=== PATIENT | female | born 1955 | race Caucasian/White ===

== ENCOUNTER 2021-09-09 17:34 | Inpatient (IN) ==
[2021-09-09 19:59] LABS: Basophils % 0.3 %; Hematocrit 37.8 % (35.3-44.9); Hemoglobin 12.3 g/dL (11.5-15.4); Immature Granulocytes % 0.3 % (0-4); Lymphocytes # 1.3 K/mcL (0.6-4.6); Lymphocytes % 38.7 %; Mean Corpuscular HGB Conc 32.5 g/dL (31.6-35.5); Mean Corpuscular Hemoglobin 27.5 pg (28.0-33.3); Mean Corpuscular Volume 84.6 fL (83.0-100.0); Mean Platelet Volume 9.7 fL (9.4-12.4); Monocytes # 0.2 K/mcL (0.0-1.3); Monocytes % 5.5 %; Neutrophils # 1.9 K/mcL (1.6-8.9); Platelet Count 167 K/mcL (140-400); Red Blood Count 4.47 M/mcL (3.82-4.97); Red Cell Distribution Width 15.5 % (11.5-14.5); Segmented Neutrophils % 55.2 %; White Blood Count 3.5 K/mcL (4.3-11.1)
[2021-09-09] MEDS ORDERED: Famotidine 20 MG/2 ML VIAL IVP ONE (20:03)
[2021-09-09 20:18] LABS: BUN/Creatinine Ratio 20 (6-26); Blood Urea Nitrogen 20 mg/dL (8-23); Calcium 8.6 mg/dL (8.6-10.3); Carbon Dioxide 29 mEq/L (23-29); Chloride 101 mEq/L (98-107); Glucose 104 mg/dL (70-105); Osmolality,Calculated 287 (280-300); Potassium 3.6 mEq/L (3.5-5.1); Sodium 137 mEq/L (136-145); eGFR For African Americans > 60 (> 60); eGFR For Non-African Americans 56 (> 60)
[2021-09-09 20:19] LABS: Troponin I < 0.03 ng/mL (< 0.04)
[2021-09-10] MEDS ORDERED: Acetaminophen 325 MG TABLET PO PRN (00:29)
[2021-09-10] MEDS ORDERED: Ondansetron 4 MG/2 ML VIAL IVP PRN (00:29)
[2021-09-10] MEDS ORDERED: Naloxone 0.4 MG/ML INJ IVP PRN (00:29)
[2021-09-10] MEDS ORDERED: Ipratropium/Albuterol Neb 3 ML IH PRN (00:32)
[2021-09-10] MEDS ORDERED: Remdesivir 200 MG in 0.9 % Sodium Chloride 100 ML IVPB ONE (02:00)
[2021-09-10 02:44] LABS: Basophils % 0.2 %; Hematocrit 38.1 % (35.3-44.9); Hemoglobin 12.2 g/dL (11.5-15.4); Immature Granulocytes % 0.5 % (0-4); Lymphocytes # 0.8 K/mcL (0.6-4.6); Lymphocytes % 20.5 %; Mean Corpuscular Hemoglobin 27.1 pg (28.0-33.3); Mean Corpuscular Volume 84.5 fL (83.0-100.0); Mean Platelet Volume 9.6 fL (9.4-12.4); Monocytes # 0.1 K/mcL (0.0-1.3); Monocytes % 3.2 %; Neutrophils # 3.1 K/mcL (1.6-8.9); Platelet Count 172 K/mcL (140-400); Red Blood Count 4.51 M/mcL (3.82-4.97); Red Cell Distribution Width 15.4 % (11.5-14.5); Segmented Neutrophils % 75.6 %
[2021-09-10 02:51] LABS: INR 1.1; Prothrombin Time 12.7 Seconds (9.4-12.1)
[2021-09-10] MEDS: Mirtazapine 15 MG TABLET PO SCH ×2 (03:18→20:03)
[2021-09-10 03:55] LABS: Alanine Aminotransferase 31 Units/L (7-52); Albumin 3.6 g/dL (3.5-5.7); Albumin/Globulin Ratio 1.3 (1.1-2.2); Alkaline Phosphatase 50 Units/L (34-104); Aspartate Amino Transferase 41 Units/L (13-39); BUN/Creatinine Ratio 21 (6-26); Bilirubin,Direct 0.1 mg/dL (0.0-0.2); Bilirubin,Indirect 0.4 mg/dL (0.0-1.0); Bilirubin,Total 0.5 mg/dL (0.3-1.0); Blood Urea Nitrogen 18 mg/dL (8-23); C-Reactive Protein 37 mg/L (Less than 10); Calcium 8.3 mg/dL (8.6-10.3); Carbon Dioxide 23 mEq/L (23-29); Chloride 104 mEq/L (98-107); Globulin 2.7 g/dL (2.4-3.5); Glucose 134 mg/dL (70-105); Lactate Dehydrogenase 321 Units/L (140-271); Magnesium 1.8 mg/dL (1.6-2.6); Osmolality,Calculated 288 (280-300); Potassium 3.4 mEq/L (3.5-5.1); Sodium 137 mEq/L (136-145); Thyroid Stimulating Hormone 1.994 mcIU/mL (0.340-5.600); Total Protein 6.3 g/dL (6.4-8.9); eGFR For African Americans > 60 (> 60); eGFR For Non-African Americans > 60 (> 60)
[2021-09-10 04:34] LABS: Ferritin 279 ng/mL (10-120)
[2021-09-10] MEDS: Aspirin Enteric Coated 81 MG Tablet PO SCH (08:23)
[2021-09-10] MEDS: Gabapentin 100 MG CAPSULE PO SCH ×3 (08:23→20:03)
[2021-09-10] MEDS: Metoprolol XL (24 HR) Succ 25 MG TAB.ER.24H PO SCH (08:23)
[2021-09-10] MEDS: hydroCHLOROthiazide 25 MG TABLET PO SCH (08:23)
[2021-09-10] MEDS: Losartan/HCTZ 50-12.5 TABLET PO SCH (08:23)
[2021-09-10] MEDS: *HR* Enoxaparin 40 MG/0.4 ML SYRINGE SQ SCH (08:24)
[2021-09-10] MEDS: Vilazodone Hcl [Viibryd] 40 MG PO SCH (08:26)
[2021-09-10] MEDS: *HR* OxyCODONE/APAP 7.5/325 TABLET PO PRN (08:34)
[2021-09-10] MEDS ORDERED: Azithromycin 500 MG in 0.9 % Sodium Chloride 250 ML IVPB SCH (09:00)
[2021-09-10] MEDS: Ipratropium 1 PUFF INHALER IH SCH ×4 (11:19→23:19)
[2021-09-10 13:24] LABS: Bilirubin,Urine Negative (Negative); Blood,Urine Negative (Negative); Clarity,Urine Clear (Clear); Color,Urine Yellow (Yellow); Glucose,Urine (UA) Normal (Normal); Ketones,Urine Negative (Negative); Leukocyte Esterase,Urine Negative (Negative); Mucus,Urine Few per lpf (None-Few); Nitrite,Urine Negative (Negative); Protein,Urine 70 mg/dL (Neg-Trace); RBC,Urine 0-3 per hpf (0-3); Specific Gravity,Urine 1.028 (1.010-1.025); Squamous Epithelial Cell,Urine Few per hpf (None-Few); Urobilinogen,Urine Normal (Normal)
[2021-09-10] MEDS ORDERED: Fluticasone Propionate Nasal 50 MCG/SPRAY BOTTLE NS PRN (17:49)
[2021-09-10] MEDS: Gabapentin 300 MG CAPSULE PO SCH (20:03)
[2021-09-10] MEDS: Benzonatate 100 MG CAPSULE PO SCH (20:04)
[2021-09-11] MEDS: Remdesivir 100 MG in 0.9 % Sodium Chloride 100 ML IVPB SCH (00:34)
[2021-09-11] MEDS: Ipratropium 1 PUFF INHALER IH SCH ×5 (03:48→20:24)
[2021-09-11 06:22] LABS: Basophils % 0.2 %; Hematocrit 38.4 % (35.3-44.9); Hemoglobin 12.3 g/dL (11.5-15.4); Immature Granulocytes % 0.2 % (0-4); Lymphocytes # 1.6 K/mcL (0.6-4.6); Lymphocytes % 32.1 %; Mean Corpuscular Hemoglobin 27.3 pg (28.0-33.3); Mean Corpuscular Volume 85.3 fL (83.0-100.0); Mean Platelet Volume 9.4 fL (9.4-12.4); Monocytes # 0.2 K/mcL (0.0-1.3); Monocytes % 4.5 %; Neutrophils # 3.2 K/mcL (1.6-8.9); Platelet Count 195 K/mcL (140-400); Red Cell Distribution Width 15.2 % (11.5-14.5); White Blood Count 5.1 K/mcL (4.3-11.1)
[2021-09-11] MEDS: Aspirin Enteric Coated 81 MG Tablet PO SCH (08:05)
[2021-09-11] MEDS: Gabapentin 300 MG CAPSULE PO SCH ×2 (08:05→20:19)
[2021-09-11] MEDS: *HR* OxyCODONE/APAP 7.5/325 TABLET PO PRN ×2 (08:05→20:19)
[2021-09-11] MEDS: Gabapentin 100 MG CAPSULE PO SCH (08:05)
[2021-09-11] MEDS: Benzonatate 100 MG CAPSULE PO SCH ×3 (08:06→20:18)
[2021-09-11] MEDS: Losartan/HCTZ 50-12.5 TABLET PO SCH (08:06)
[2021-09-11] MEDS: Metoprolol XL (24 HR) Succ 25 MG TAB.ER.24H PO SCH (08:06)
[2021-09-11] MEDS: hydroCHLOROthiazide 25 MG TABLET PO SCH (08:06)
[2021-09-11] MEDS: Vilazodone Hcl [Viibryd] 40 MG PO SCH (08:06)
[2021-09-11] MEDS: *HR* Enoxaparin 40 MG/0.4 ML SYRINGE SQ SCH (08:07)
[2021-09-11 09:03] LABS: Alanine Aminotransferase 29 Units/L (7-52); Albumin 3.4 g/dL (3.5-5.7); Albumin/Globulin Ratio 1.3 (1.1-2.2); Alkaline Phosphatase 46 Units/L (34-104); Aspartate Amino Transferase 43 Units/L (13-39); BUN/Creatinine Ratio 24 (6-26); Bilirubin,Total 0.5 mg/dL (0.3-1.0); Blood Urea Nitrogen 21 mg/dL (8-23); C-Reactive Protein 31 mg/L (Less than 10); Calcium 8.2 mg/dL (8.6-10.3); Carbon Dioxide 23 mEq/L (23-29); Chloride 103 mEq/L (98-107); Ferritin 287 ng/mL (10-120); Globulin 2.6 g/dL (2.4-3.5); Glucose 95 mg/dL (70-105); Lactate Dehydrogenase 416 Units/L (140-271); Osmolality,Calculated 285 (280-300); Potassium 3.3 mEq/L (3.5-5.1); Sodium 136 mEq/L (136-145); eGFR For African Americans > 60 (> 60); eGFR For Non-African Americans > 60 (> 60)
[2021-09-11] MEDS: Mirtazapine 15 MG TABLET PO SCH (20:19)
[2021-09-12] MEDS: Ipratropium 1 PUFF INHALER IH SCH ×6 (00:11→21:01)
[2021-09-12] MEDS: Remdesivir 100 MG in 0.9 % Sodium Chloride 100 ML IVPB SCH (01:38)
[2021-09-12 06:29] LABS: Basophils % 0.2 %; Hematocrit 37.3 % (35.3-44.9); Hemoglobin 12.1 g/dL (11.5-15.4); Immature Granulocytes % 0.4 % (0-4); Lymphocytes # 1.5 K/mcL (0.6-4.6); Lymphocytes % 25.9 %; Mean Corpuscular HGB Conc 32.4 g/dL (31.6-35.5); Mean Corpuscular Hemoglobin 27.1 pg (28.0-33.3); Mean Corpuscular Volume 83.6 fL (83.0-100.0); Monocytes # 0.3 K/mcL (0.0-1.3); Monocytes % 4.6 %; Neutrophils # 3.9 K/mcL (1.6-8.9); Platelet Count 203 K/mcL (140-400); Red Blood Count 4.46 M/mcL (3.82-4.97); Red Cell Distribution Width 15.4 % (11.5-14.5); Segmented Neutrophils % 68.9 %; White Blood Count 5.6 K/mcL (4.3-11.1)
[2021-09-12 06:47] LABS: Alanine Aminotransferase 23 Units/L (7-52); Albumin 3.4 g/dL (3.5-5.7); Albumin/Globulin Ratio 1.3 (1.1-2.2); Alkaline Phosphatase 46 Units/L (34-104); Aspartate Amino Transferase 32 Units/L (13-39); BUN/Creatinine Ratio 25 (6-26); Bilirubin,Total 0.4 mg/dL (0.3-1.0); Blood Urea Nitrogen 21 mg/dL (8-23); Calcium 8.4 mg/dL (8.6-10.3); Carbon Dioxide 26 mEq/L (23-29); Chloride 105 mEq/L (98-107); Globulin 2.6 g/dL (2.4-3.5); Glucose 106 mg/dL (70-105); Osmolality,Calculated 289 (280-300); Potassium 3.4 mEq/L (3.5-5.1); Sodium 138 mEq/L (136-145); eGFR For African Americans > 60 (> 60); eGFR For Non-African Americans > 60 (> 60)
[2021-09-12] MEDS: Gabapentin 300 MG CAPSULE PO SCH ×2 (09:22→20:43)
[2021-09-12] MEDS: *HR* Enoxaparin 40 MG/0.4 ML SYRINGE SQ SCH (09:22)
[2021-09-12] MEDS: Benzonatate 100 MG CAPSULE PO SCH ×3 (09:22→20:43)
[2021-09-12] MEDS: Aspirin Enteric Coated 81 MG Tablet PO SCH (09:22)
[2021-09-12] MEDS: Losartan/HCTZ 50-12.5 TABLET PO SCH (09:41)
[2021-09-12] MEDS: hydroCHLOROthiazide 25 MG TABLET PO SCH (09:41)
[2021-09-12] MEDS ORDERED: 0.9 % Sodium Chloride 500 ML IVC ONE (09:47)
[2021-09-12] MEDS: Vilazodone Hcl [Viibryd] 40 MG PO SCH (09:55)
[2021-09-12] MEDS: Mirtazapine 15 MG TABLET PO SCH (20:44)
[2021-09-13] MEDS: Ipratropium 1 PUFF INHALER IH SCH ×6 (00:09→20:20)
[2021-09-13] MEDS: Remdesivir 100 MG in 0.9 % Sodium Chloride 100 ML IVPB SCH (01:55)
[2021-09-13] MEDS ORDERED: Furosemide 40 MG/4 ML VIAL IVP ONE (07:59)
[2021-09-13] MEDS: Gabapentin 300 MG CAPSULE PO SCH ×2 (09:42→19:54)
[2021-09-13] MEDS: Losartan/HCTZ 50-12.5 TABLET PO SCH (09:43)
[2021-09-13] MEDS: Aspirin Enteric Coated 81 MG Tablet PO SCH (09:43)
[2021-09-13] MEDS: Benzonatate 100 MG CAPSULE PO SCH ×3 (09:43→19:54)
[2021-09-13] MEDS: *HR* Enoxaparin 40 MG/0.4 ML SYRINGE SQ SCH (09:43)
[2021-09-13] MEDS: polyethylene glycoL 3350 17 GM POWD.PACK PO SCH (09:43)
[2021-09-13] MEDS: hydroCHLOROthiazide 25 MG TABLET PO SCH (09:44)
[2021-09-13] MEDS: Dexamethasone Sodium Phos/PF 10 MG/ML VIAL IVP SCH (09:46)
[2021-09-13] MEDS: Vilazodone Hcl [Viibryd] 40 MG PO SCH (09:47)
[2021-09-13 12:26] LABS: Basophils % 0.2 %; Hematocrit 38.1 % (35.3-44.9); Hemoglobin 12.3 g/dL (11.5-15.4); Immature Granulocytes % 0.7 % (0-4); Lymphocytes # 0.9 K/mcL (0.6-4.6); Lymphocytes % 9.1 %; Mean Corpuscular HGB Conc 32.3 g/dL (31.6-35.5); Mean Corpuscular Hemoglobin 26.7 pg (28.0-33.3); Mean Corpuscular Volume 82.6 fL (83.0-100.0); Mean Platelet Volume 9.8 fL (9.4-12.4); Monocytes # 0.4 K/mcL (0.0-1.3); Monocytes % 3.5 %; Neutrophils # 8.6 K/mcL (1.6-8.9); Platelet Count 258 K/mcL (140-400); Red Blood Count 4.61 M/mcL (3.82-4.97); Red Cell Distribution Width 15.8 % (11.5-14.5); Segmented Neutrophils % 86.5 %; White Blood Count 9.9 K/mcL (4.3-11.1)
[2021-09-13 12:47] LABS: Alanine Aminotransferase 29 Units/L (7-52); Albumin 3.6 g/dL (3.5-5.7); Albumin/Globulin Ratio 1.2 (1.1-2.2); Alkaline Phosphatase 58 Units/L (34-104); Aspartate Amino Transferase 32 Units/L (13-39); BUN/Creatinine Ratio 23 (6-26); Bilirubin,Total 0.6 mg/dL (0.3-1.0); Blood Urea Nitrogen 22 mg/dL (8-23); Calcium 8.6 mg/dL (8.6-10.3); Carbon Dioxide 26 mEq/L (23-29); Chloride 104 mEq/L (98-107); Globulin 2.9 g/dL (2.4-3.5); Glucose 130 mg/dL (70-105); Osmolality,Calculated 295 (280-300); Potassium 3.6 mEq/L (3.5-5.1); Sodium 140 mEq/L (136-145); Total Protein 6.5 g/dL (6.4-8.9); eGFR For African Americans > 60 (> 60); eGFR For Non-African Americans 60 (> 60)
[2021-09-13 14:22] LABS: C-Reactive Protein 56 mg/L (Less than 10)
[2021-09-13] MEDS: Mirtazapine 15 MG TABLET PO SCH (19:54)
[2021-09-14] MEDS: Ipratropium 1 PUFF INHALER IH SCH ×7 (00:30→23:28)
[2021-09-14] MEDS: Remdesivir 100 MG in 0.9 % Sodium Chloride 100 ML IVPB SCH (01:58)
[2021-09-14 05:44] LABS: Basophils % 0.1 %; Hemoglobin 12.3 g/dL (11.5-15.4); Immature Granulocytes % 0.8 % (0-4); Lymphocytes # 1.3 K/mcL (0.6-4.6); Lymphocytes % 16.7 %; Mean Corpuscular HGB Conc 33.2 g/dL (31.6-35.5); Mean Corpuscular Hemoglobin 27.7 pg (28.0-33.3); Mean Corpuscular Volume 83.3 fL (83.0-100.0); Monocytes # 0.3 K/mcL (0.0-1.3); Monocytes % 3.6 %; Neutrophils # 6.3 K/mcL (1.6-8.9); Platelet Count 248 K/mcL (140-400); Red Blood Count 4.44 M/mcL (3.82-4.97); Red Cell Distribution Width 15.4 % (11.5-14.5); Segmented Neutrophils % 78.8 %
[2021-09-14 06:05] LABS: Alanine Aminotransferase 27 Units/L (7-52); Albumin 3.4 g/dL (3.5-5.7); Albumin/Globulin Ratio 1.3 (1.1-2.2); Alkaline Phosphatase 57 Units/L (34-104); Aspartate Amino Transferase 32 Units/L (13-39); BUN/Creatinine Ratio 29 (6-26); Bilirubin,Total 0.5 mg/dL (0.3-1.0); Blood Urea Nitrogen 24 mg/dL (8-23); Calcium 8.3 mg/dL (8.6-10.3); Carbon Dioxide 25 mEq/L (23-29); Chloride 101 mEq/L (98-107); Globulin 2.6 g/dL (2.4-3.5); Glucose 123 mg/dL (70-105); Lactate Dehydrogenase 381 Units/L (140-271); Osmolality,Calculated 289 (280-300); Potassium 3.3 mEq/L (3.5-5.1); Sodium 137 mEq/L (136-145); eGFR For African Americans > 60 (> 60); eGFR For Non-African Americans > 60 (> 60)
[2021-09-14 06:22] LABS: Ferritin 287 ng/mL (10-120)
[2021-09-14] MEDS: Dexamethasone Sodium Phos/PF 10 MG/ML VIAL IVP SCH (08:30)
[2021-09-14] MEDS: *HR* Enoxaparin 40 MG/0.4 ML SYRINGE SQ SCH (08:30)
[2021-09-14] MEDS: polyethylene glycoL 3350 17 GM POWD.PACK PO SCH (08:30)
[2021-09-14] MEDS: Benzonatate 100 MG CAPSULE PO SCH ×3 (08:30→21:24)
[2021-09-14] MEDS: Gabapentin 300 MG CAPSULE PO SCH ×2 (08:31→21:25)
[2021-09-14] MEDS: hydroCHLOROthiazide 25 MG TABLET PO SCH (08:31)
[2021-09-14] MEDS: Aspirin Enteric Coated 81 MG Tablet PO SCH (08:31)
[2021-09-14] MEDS: Losartan/HCTZ 50-12.5 TABLET PO SCH (08:31)
[2021-09-14 09:48] LABS: C-Reactive Protein 64 mg/L (Less than 10)
[2021-09-14] MEDS: Vilazodone Hcl [Viibryd] 40 MG PO SCH (12:47)
[2021-09-14] MEDS: Mirtazapine 15 MG TABLET PO SCH (21:23)
[2021-09-15] MEDS: Ipratropium 1 PUFF INHALER IH SCH ×5 (04:07→20:26)
[2021-09-15] MEDS: polyethylene glycoL 3350 17 GM POWD.PACK PO SCH (08:00)
[2021-09-15] MEDS: *HR* Enoxaparin 40 MG/0.4 ML SYRINGE SQ SCH (08:01)
[2021-09-15] MEDS: Aspirin Enteric Coated 81 MG Tablet PO SCH (08:01)
[2021-09-15] MEDS: Gabapentin 300 MG CAPSULE PO SCH ×2 (08:01→20:36)
[2021-09-15] MEDS: hydroCHLOROthiazide 25 MG TABLET PO SCH (08:01)
[2021-09-15] MEDS: Benzonatate 100 MG CAPSULE PO SCH ×3 (08:01→20:36)
[2021-09-15] MEDS: Dexamethasone Sodium Phos/PF 10 MG/ML VIAL IVP SCH (08:04)
[2021-09-15] MEDS: Losartan/HCTZ 50-12.5 TABLET PO SCH (08:05)
[2021-09-15] MEDS: Vilazodone Hcl [Viibryd] 40 MG PO SCH (08:07)
[2021-09-15] MEDS: Mirtazapine 15 MG TABLET PO SCH (20:35)
[2021-09-16] MEDS: Ipratropium 1 PUFF INHALER IH SCH ×6 (03:35→21:12)
[2021-09-16 06:43] LABS: Hematocrit 35.1 % (35.3-44.9); Hemoglobin 11.6 g/dL (11.5-15.4); Mean Corpuscular Volume 84.6 fL (83.0-100.0); Mean Platelet Volume 9.5 fL (9.4-12.4); Platelet Count 363 K/mcL (140-400); Red Blood Count 4.15 M/mcL (3.82-4.97); Red Cell Distribution Width 15.6 % (11.5-14.5); White Blood Count 11.9 K/mcL (4.3-11.1)
[2021-09-16 07:05] LABS: BUN/Creatinine Ratio 33 (6-26); Blood Urea Nitrogen 31 mg/dL (8-23); Calcium 8.7 mg/dL (8.6-10.3); Carbon Dioxide 31 mEq/L (23-29); Chloride 101 mEq/L (98-107); Glucose 95 mg/dL (70-105); Lactate Dehydrogenase 320 Units/L (140-271); Magnesium 1.9 mg/dL (1.6-2.6); Osmolality,Calculated 294 (280-300); Potassium 3.6 mEq/L (3.5-5.1); Sodium 139 mEq/L (136-145); eGFR For African Americans > 60 (> 60); eGFR For Non-African Americans 59 (> 60)
[2021-09-16] MEDS ORDERED: Isovue-370 500 ML BOTTLE IVP ONE (07:21)
[2021-09-16] MEDS: Losartan/HCTZ 50-12.5 TABLET PO SCH (09:49)
[2021-09-16] MEDS: hydroCHLOROthiazide 25 MG TABLET PO SCH (09:49)
[2021-09-16] MEDS: Vilazodone Hcl [Viibryd] 40 MG PO SCH (09:49)
[2021-09-16] MEDS: Benzonatate 100 MG CAPSULE PO SCH ×3 (09:49→21:14)
[2021-09-16] MEDS: Gabapentin 300 MG CAPSULE PO SCH ×2 (09:52→21:15)
[2021-09-16] MEDS: polyethylene glycoL 3350 17 GM POWD.PACK PO SCH (09:52)
[2021-09-16] MEDS: Aspirin Enteric Coated 81 MG Tablet PO SCH (09:52)
[2021-09-16] MEDS: *HR* Enoxaparin 40 MG/0.4 ML SYRINGE SQ SCH (09:55)
[2021-09-16] MEDS: Dexamethasone Sodium Phos/PF 10 MG/ML VIAL IVP SCH (10:11)
[2021-09-16 15:03] LABS: Ferritin 187 ng/mL (10-120)
[2021-09-16] MEDS: Mirtazapine 15 MG TABLET PO SCH (21:15)
[2021-09-17] MEDS: Ipratropium 1 PUFF INHALER IH SCH ×5 (00:15→21:47)
[2021-09-17] MEDS: Gabapentin 300 MG CAPSULE PO SCH ×2 (08:44→21:27)
[2021-09-17] MEDS: Aspirin Enteric Coated 81 MG Tablet PO SCH (08:47)
[2021-09-17] MEDS: Benzonatate 100 MG CAPSULE PO SCH ×3 (08:47→21:29)
[2021-09-17] MEDS: hydroCHLOROthiazide 25 MG TABLET PO SCH (08:47)
[2021-09-17] MEDS: Losartan/HCTZ 50-12.5 TABLET PO SCH (08:48)
[2021-09-17] MEDS: *HR* Enoxaparin 40 MG/0.4 ML SYRINGE SQ SCH (08:48)
[2021-09-17] MEDS: levoFLOXacin 750 MG/150 ML 750 MG/150 ML BAG IVPB SCH (08:49)
[2021-09-17] MEDS: polyethylene glycoL 3350 17 GM POWD.PACK PO SCH (08:49)
[2021-09-17] MEDS: Vilazodone Hcl [Viibryd] 40 MG PO SCH (09:09)
[2021-09-17] MEDS: Dexamethasone Sodium Phos/PF 10 MG/ML VIAL IVP SCH (09:34)
[2021-09-17] MEDS: Mirtazapine 15 MG TABLET PO SCH (21:28)
[2021-09-18 02:08] LABS: Basophils % 0.1 %; Hematocrit 35.2 % (35.3-44.9); Hemoglobin 11.5 g/dL (11.5-15.4); Immature Granulocytes % 0.8 % (0-4); Lymphocytes # 1.1 K/mcL (0.6-4.6); Lymphocytes % 10.5 %; Mean Corpuscular HGB Conc 32.7 g/dL (31.6-35.5); Mean Corpuscular Hemoglobin 27.6 pg (28.0-33.3); Mean Corpuscular Volume 84.4 fL (83.0-100.0); Mean Platelet Volume 9.2 fL (9.4-12.4); Monocytes # 0.3 K/mcL (0.0-1.3); Monocytes % 2.5 %; Neutrophils # 8.9 K/mcL (1.6-8.9); Platelet Count 360 K/mcL (140-400); Red Blood Count 4.17 M/mcL (3.82-4.97); Red Cell Distribution Width 15.6 % (11.5-14.5); Segmented Neutrophils % 86.1 %; White Blood Count 10.3 K/mcL (4.3-11.1)
[2021-09-18 02:14] LABS: BUN/Creatinine Ratio 27 (6-26); Blood Urea Nitrogen 24 mg/dL (8-23); Calcium 8.8 mg/dL (8.6-10.3); Carbon Dioxide 30 mEq/L (23-29); Chloride 98 mEq/L (98-107); Glucose 147 mg/dL (70-105); Osmolality,Calculated 289 (280-300); Potassium 3.9 mEq/L (3.5-5.1); Sodium 136 mEq/L (136-145); eGFR For African Americans > 60 (> 60); eGFR For Non-African Americans > 60 (> 60)
[2021-09-18] MEDS: Ipratropium 1 PUFF INHALER IH SCH ×4 (04:01→20:15)
[2021-09-18] MEDS: hydroCHLOROthiazide 25 MG TABLET PO SCH (10:41)
[2021-09-18] MEDS: levoFLOXacin 750 MG/150 ML 750 MG/150 ML BAG IVPB SCH (10:41)
[2021-09-18] MEDS: Losartan/HCTZ 50-12.5 TABLET PO SCH (10:42)
[2021-09-18] MEDS: Gabapentin 300 MG CAPSULE PO SCH ×2 (10:48→20:32)
[2021-09-18] MEDS: Aspirin Enteric Coated 81 MG Tablet PO SCH (10:48)
[2021-09-18] MEDS: Dexamethasone Sodium Phos/PF 10 MG/ML VIAL IVP SCH (10:48)
[2021-09-18] MEDS: Benzonatate 100 MG CAPSULE PO SCH ×3 (10:48→20:32)
[2021-09-18] MEDS: *HR* Enoxaparin 40 MG/0.4 ML SYRINGE SQ SCH (10:49)
[2021-09-18] MEDS: polyethylene glycoL 3350 17 GM POWD.PACK PO SCH (10:49)
[2021-09-18] MEDS: Vilazodone Hcl [Viibryd] 40 MG PO SCH (10:58)
[2021-09-18] MEDS: Mirtazapine 15 MG TABLET PO SCH (20:31)
[2021-09-19] MEDS: Ipratropium 1 PUFF INHALER IH SCH ×3 (03:37→15:42)
[2021-09-19 05:14] LABS: Hematocrit 34.4 % (35.3-44.9); Hemoglobin 11.2 g/dL (11.5-15.4); Mean Corpuscular HGB Conc 32.6 g/dL (31.6-35.5); Mean Corpuscular Hemoglobin 27.7 pg (28.0-33.3); Mean Corpuscular Volume 85.1 fL (83.0-100.0); Mean Platelet Volume 9.5 fL (9.4-12.4); Platelet Count 328 K/mcL (140-400); Red Blood Count 4.04 M/mcL (3.82-4.97); Red Cell Distribution Width 15.7 % (11.5-14.5); White Blood Count 9.4 K/mcL (4.3-11.1)
[2021-09-19 05:27] LABS: BUN/Creatinine Ratio 29 (6-26); Blood Urea Nitrogen 29 mg/dL (8-23); Calcium 8.6 mg/dL (8.6-10.3); Carbon Dioxide 28 mEq/L (23-29); Chloride 100 mEq/L (98-107); Glucose 118 mg/dL (70-105); Osmolality,Calculated 287 (280-300); Potassium 4.1 mEq/L (3.5-5.1); Sodium 135 mEq/L (136-145); eGFR For African Americans > 60 (> 60); eGFR For Non-African Americans 56 (> 60)
[2021-09-19] MEDS: polyethylene glycoL 3350 17 GM POWD.PACK PO SCH (08:06)
[2021-09-19] MEDS: Gabapentin 300 MG CAPSULE PO SCH (08:06)
[2021-09-19] MEDS: Losartan/HCTZ 50-12.5 TABLET PO SCH (08:07)
[2021-09-19] MEDS: Benzonatate 100 MG CAPSULE PO SCH ×2 (08:07→14:56)
[2021-09-19] MEDS: Aspirin Enteric Coated 81 MG Tablet PO SCH (08:07)
[2021-09-19] MEDS: Dexamethasone Sodium Phos/PF 10 MG/ML VIAL IVP SCH (08:08)
[2021-09-19] MEDS: hydroCHLOROthiazide 25 MG TABLET PO SCH (08:08)
[2021-09-19] MEDS: levoFLOXacin 750 MG/150 ML 750 MG/150 ML BAG IVPB SCH (08:09)
[2021-09-19] MEDS: Vilazodone Hcl [Viibryd] 40 MG PO SCH (08:10)
[2021-09-19] MEDS: *HR* Enoxaparin 40 MG/0.4 ML SYRINGE SQ SCH (08:10)
[2021-09-19 10:45] VITALS: BP 94/52; PULSE 89; TEMP 98.1; O2SAT 100
== END 2021-09-19 15:45 | disposition home or self-care (01) | DRG 177 ==
LOC: EMEROOARM 17:34 → 3ANU 17:34 → OBSVTOIN 23:57 → SUATTDRO 23:57 → 3ANU 09-13 11:06
PROVIDERS: ADMIT Internal Medicine; ATTEND Internal Medicine